=== PATIENT | female | born 2000 | race Caucasian/White ===

== ENCOUNTER → 2021-07-20 12:08 | Outpatient (CLI) | payer OTHER, MEDICAID, SELFPAY ==
--- NOTE | 2021-07-20 | DI.US.S_ITS ---
PROCEDURE: US OB >= 14 WEEKS FETUS INDICATIONS: 20 WEEK ANATOMY OUTSIDE/PRIOR DATING DATA: Last menstrual period (LMP): 02/28/2021. LMP-based estimated date of delivery (MESHA): 12/05/2021. First dating scan (date and location): 07/20/2021. Estimated date of delivery (MESHA) from first dating scan: 11/22/2021. TECHNIQUE: Real-time scanning was performed of the fetus, with image documentation and biometric measurements. COMPARISON: None. FINDINGS: General: A single living intrauterine gestation is present. Presentation: Vertex. Placenta: Placental position is anterior , without previa. Amniotic fluid index: 10.9 cm, normal range is 5-24 cm. heart rate: 136 beats per minute. Maternal cervical canal: 3.8 cm long. Normal lower limit is 2.5 cm. biometrics: Biparietal diameter: 5.5 cm 22 weeks 4 days Head circumference: 20.4 cm 20 weeks 3 days Abdominal circumference: 16.6 cm 21 weeks 4 days Femur length: 3.8 cm 22 weeks 1 day Composite gestational age from present scan: 22 weeks 1 day Estimated weight and percentile: 464 g, 69th percentile Anatomic survey: Neuro: Ventricles are non-dilated at less than 10 mm. Cisterna magna is normal at 3-11 mm. Cerebellum is normal in size and morphology. Nuchal skin fold: Normal at less than 6 mm between 14-21 weeks gestational age. Face: Nose and lips, facial profile are not well seen. Spine: No evidence for spina bifida. Heart: 4-chambered heart and ventricular outflow tracts are suboptimally evaluated. Echogenic focus is noted in the left atrium measuring approximately 3 mm. Diaphragm: Diaphragm is intact. Stomach: Left-sided stomach is present. Kidneys: No hydronephrosis. Normal is less than 5 mm in 2nd trimester, less than 7 mm in 3rd trimester. Cord: 3-vessel cord has orthotopic insertion. Bladder: Normal in size. Extremities: All 4 extremities identified. IMPRESSION: Single live intrauterine with ultrasound gestational age today of 22 weeks 1 day. Echogenic focus is noted within the left atrium. This is overall nonspecific. In addition, 4 chambered heart and outflow tracts are suboptimally visualized. Short interval imaging follow-up is recommended. profile and face are not well seen. Short interval follow-up is recommended. We strive to produce accurate, complete, and clear reports of imaging services. To assist us in improving patient care, this report was composed using standard report templates and voice recognition software. Therefore, it may contain abnormal punctuation, insertions and/or omissions. Occasional wrong-word or sound-alike substitutions may occur. Though we review the report and make efforts to correct it, we do recommend that the report be read carefully in proper context to recognize any text inaccuracies. Dictated by: Ila Jo M.D. on 07/21/2021 at 16:04 Approved by: Ila Jo M.D. on 07/21/2021 at 16:07
== END ==
PROVIDERS: Referring Provider Nurse Practitioner Obstetrics & Gynecology; Visit Provider Nurse Practitioner Obstetrics & Gynecology
DX: Z34.92 Encounter for supervision of normal pregnancy, unspecified, second trimester (principal); Z3A.22 22 weeks gestation of pregnancy
CPT/HCPCS: 76811

== ENCOUNTER → 2021-08-17 14:10 | Outpatient (CLI) | payer OTHER, MEDICAID, SELFPAY ==
--- NOTE | 2021-08-17 | DI.US.S_ITS ---
PROCEDURE: US OB FOLLOW UP INDICATIONS: FOLLOW UP FACE PREVIOUSLY UNSEEN TECHNIQUE: Real-time scanning was performed of the fetus, with image documentation. Endovaginal scanning: Not performed. COMPARISON: None. FINDINGS: A single living intrauterine gestation is present. Presentation: Vertex Placenta: Placental position is anterior, without previa. Amniotic fluid index: 15.8 cm, normal range is 5-24 cm. heart rate: 147 beats per minute. Cardiac views are all normal. Previously questioned echogenic ventricular focus is no longer identified. profile and facial structures appear normal. IMPRESSION: Single live intrauterine gestation. Completion cardiac and facial/profile views are normal. Dictated by: Jared Zamora M.D. on 08/17/2021 at 16:34 Approved by: Jared Zamora M.D. on 08/17/2021 at 16:36
== END ==
PROVIDERS: Referring Provider Nurse Practitioner Obstetrics & Gynecology; Visit Provider Nurse Practitioner Obstetrics & Gynecology
DX: Z34.00 Encounter for supervision of normal first pregnancy, unspecified trimester (principal)
CPT/HCPCS: 76816

== ENCOUNTER 2021-11-04 08:26 | Inpatient (IN) | payer OTHER, MEDICAID, SELFPAY ==
--- NOTE | 2021-11-04 08:39 | P.HPOB_ITS ---
OB HPI Date/Time Date of admission: 11/04/21 Date Patient Seen: 11/04/21 Time Patient Seen: 08:40 History of Present Condition Chief complaint: : 1 Para: 0 Estimated Date of Delivery: 11/28/21 Estimated Gestational Age (weeks): 36.4 Narrative: Sharmaine Peterson is a 21 year old female @ [id number] by 11wk US who presents for evaluation of PPROM. Awoke with a lot pf pelvic pressure this morning arou nd 0700. Cramping started and clear, leaking fluid was noted at 0800 getting out of the car. Now cramping every 3 minutes. Was know to be 3cm dilated at 36wk appt. Uncomplicated PN care w/ CNM. Desires low interbvention . and mother, present and supportive. History of Present care: good care, initiated at week # (11), number of visits (6) and pounds weight gain (22) Dating criteria: based on 1st trimester US only Ultrasounds: normal mid trimester US Obstetrical complications: none Medical complications: none Preadmission Labs Blood type: 0 (-) negative -: Antibody screen: negative, GBS status: positive, HBsAG: negative, HIV: negative and RPR/VDLR: negative -: Chlamydia screen: not detected and Gonorrhea screen: not detected -: Rubella: immune and Varicella: immune HCT: 34.7 HCAB: negative PAP: Normal Cell-free DNA: Negative, female Narrative: 2hr gtt: 84/159/120 Evaluation Evaluation Baseline heart rate: 130 Variability: Moderate (11-25) monitor accelerations: Present Monitor Decelerations: Variable Contraction Frequency (minutes): 2 Uterine Contraction Intensity: Moderate Status: Category ll Comments: CE deferred, previously 3cm in clinic on 10/31/2021 [facility] Social History (Updated 11/04/21 @ 10:50 by Klaudia Small CNM) marital status: household members: spouse lives independently: Yes Smoking Status: Never smoker Meds Home Medications and Allergies Home Medications Medication Instructions Recorded Confirmed Type No Known Home Medications 11/04/21 11/04/21 History Allergies Allergy/AdvReac Type Severity Reaction Status Date / Time No Known Drug Allergies Allergy Verified 11/04/21 09:06 Review of Systems Review of Systems ROS: Yes All systems reviewed with the patient and are negative except as otherwise documented OB Exam Presentation: vertex Estimated Weight (lbs): 5 Objective Labs Result Diagrams: 11/04/21 09:05 Labs: SARS-CoV-2: negative Assessment and Plan Assessment and Plan Assessment and Plan narrative: A: [place] PPROM x 2 hours without sx of infection GBS prophylaxis indicated RH negative Cat II FHR, overall reassuring P: Admit, routine orders, labor support, PRN. OB Back-up () consulted and okay with CNM management. Notified [facility] () of anticipated late today. PCN for GBS prophylaxis. Reassess in 4 hours or sooner, PRN. Time Spent with Patient Total time spent with greater than 50% in coordination of care (as documented) at patient's floor/unit and/or counseling patient:: 15-24 minutes
[2021-11-04 09:23] LABS: Add Manual Diff / Slide Review NO; Basophils Absolute Auto 100 /uL (0-100); Basophils Percent Auto 0.5 % (0-2); Eosinophils Absolute Auto 0 /uL (0-450); Eosinophils Percent Auto 0.3 % (2-4); Hematocrit 35.4 % (36-46); Hemoglobin 12.1 g/dL (12.0-16.0); Lymphocytes Absolute Auto 2200 /uL (1100-4500); Lymphocytes Percent Auto 15.9 % (25-40); Mean Corpuscular HGB Conc 34.1 % (30-36); Mean Corpuscular Hemoglobin 26.7 PG (26-34); Mean Corpuscular Volume 78.4 fL (80-100); Monocytes Absolute Auto 900 /uL (0-900); Monocytes Percent Auto 6.2 % (3-14); Neutrophils Absolute Auto 10800 /uL (1500-7000); Neutrophils Percent Auto 77.1 % (50-75); Platelet Count 303 X10^3/uL (150-400); Red Blood Cell Count 4.52 X10^6/uL (4.0-5.2); Red Cell Distribution Width 14.2 % (11.6-14.8)
[2021-11-04 09:35] LABS: COVID19 -Nasal RAPID Negative (Negative)
[2021-11-04] MEDS: PENICILLIN G POTASSIUM 5,000,000 UNIT in DEXTROSE 5% IN WATER 250 ML 250 UNIT IV (10:06)
[2021-11-04] MEDS: LACTATED RINGERS 1,000 ML 100 ML IV ×2 (10:07→14:03)
[2021-11-04] MEDS: fentaNYL 100 MCG/2 ML INJ (10:45)
[2021-11-04] MEDS: FENT 2MCG/ML BUPIV 0.125% EPI 200 MCG/100 ML PLAST..BAG 12 MCG EPIDURAL (10:50)
[2021-11-04 12:22] LABS: Aspartate Aminotransferase 20 IU/L (14-36); BUN Creatinine Ratio 8.2 (6-22); Blood Urea Nitrogen 4 mg/dL (7-17); Estimated Glomerular Filt Rate > 60 mL/min (>60); Uric Acid 3.4 mg/dL (2.5-6.2)
[2021-11-04 12:23] LABS: Creatinine Urine Random 83.9 mg/dL; Protein (Total) Urine Random 29 mg/dL (0-12); Protein Creatinine Ratio Urine 0.34 GRAM/24H
[2021-11-04] MEDS: PENICILLIN G POTASSIUM 3,000,000 UNIT/50 ML FROZ.PIGGY 100 UNIT IV (14:49)
[2021-11-04 15:21] VITALS: BP 135/92
--- NOTE | 2021-11-04 16:09 | PM.OBPRVD ---
Events: Labor < 37 wks and Premature Rupture Membrane Labor & Delivery Delivery date: 11/04/21 Intrapartal Events: Mild Preeclampsia Cervical ripening method: none Induction method: none Delivery monitor: external FHT and external uterine Route of delivery: Episiotomy description: None L&D Laceration Description: None Quantitative Blood Loss: 60 Anesthesia Type: Epidural Narrative: Patient achieved adequate pain relief with epidural anesthesia. Labor progressed well without augmentation. GBS was adequately treated at 2pm (penicillin x 2 doses). Preeclampsia was diagnosed in labor based on BP and elevated protein creatinine ratio. Patient began to feel constant rectal pressure, was examined and found to be C/C/+1. Patient pushed well with coaching and encouragement. RT was called to standby for the . NSVB of a viable baby girl in ESTHER position with a single tight nuchal cord, body cord x1 and compound left hand. was placed on maternal abdomen for drying and skin to skin with Apgars of 9/9. RT was called off as they entered the room within 30 seconds of the . 30 units of pitocin in 500mL LR was started at 250mL/hr for AMTSL. After cessation of pulsation, the cord was double clamped by CNM and cut by FOB. Hospital cord blood sample was collected. Gentle cord traction led to spontaneous, Schultze delivery of an apparently intact placenta, membranes and 3VC. Fundus immediately firm and bleeding minimal. Vagina and perineum inspected and intact. QBL 60mL. Both mother and baby stable and skin to skin as I left the room. Baby 1: Infant gender: Female Presentation: vertex Position: Left Occiput Anterior Placenta delivery description: Spontaneous Cord Vessel Description: 3 Vessels, Nuchal Cord and Around Body x1 score (1 min): 9 score (5 min): 9 weight: 2.764 kg Plan for aftercare: Routine care
[2021-11-04] MEDS: KETOROLAC 30 MG/ML VIAL IV (18:41)
[2021-11-05] MEDS: ACETAMINOPHEN 325 MG TABLET 650 MG PO ×2 (02:41→11:37)
[2021-11-05 07:20] LABS: Add Manual Diff / Slide Review NO; Basophils Absolute Auto 100 /uL (0-100); Basophils Percent Auto 0.4 % (0-2); Eosinophils Absolute Auto 100 /uL (0-450); Eosinophils Percent Auto 0.4 % (2-4); Hematocrit 32.1 % (36-46); Hemoglobin 10.8 g/dL (12.0-16.0); Lymphocytes Absolute Auto 2700 /uL (1100-4500); Lymphocytes Percent Auto 17.9 % (25-40); Mean Corpuscular HGB Conc 33.7 % (30-36); Mean Corpuscular Hemoglobin 26.6 PG (26-34); Mean Corpuscular Volume 79.1 fL (80-100); Monocytes Absolute Auto 1200 /uL (0-900); Monocytes Percent Auto 7.6 % (3-14); Neutrophils Absolute Auto 11300 /uL (1500-7000); Neutrophils Percent Auto 73.7 % (50-75); Platelet Count 257 X10^3/uL (150-400); Red Blood Cell Count 4.06 X10^6/uL (4.0-5.2); Red Cell Distribution Width 14.5 % (11.6-14.8); White Blood Cell Count 15.3 X10^3/uL (4.5-11.0)
--- NOTE | 2021-11-05 09:06 | PM.OBDS.1 ---
Discharge Providers Provider Date of admission: 11/04/21 08:26 Discharge Date: 11/05/21 Primary care physician: MARIA EUGENIA Adair Consults: 11/05/21 16:07 Consult to Construction Rigger Routine Comment: Discharge provider: Klaudia Small CNM Summary Hospital Course Date Patient Seen: 11/05/21 Time Patient Seen: 09:07 Diagnoses: O80 Hospital Course: PPD1 s/p NSVB. Voiding, ambulating and independently. Tolerating a general diet. Vaginal bleeding it light, without clots. Partner remains present and supportive. Peripartum Data Infant Delivery Method: Natural Vaginal Laceration Description: None Episiotomy description: None Procedures: NSVB (O80) complications: none 1: Gender: Female Disposition of : home Discharge Diagnosis (1) Encounter for full-term uncomplicated delivery: Status: Acute (2) Pre-eclampsia affecting childbirth: Start Date: 11/04/21 Start Time: 15:00 Status: Acute Problem Details: stable PP BPs Status at Discharge Cognitive/behavioral status at discharge: oriented and calm Functional status at discharge: independent ambulation Time Spent with Patient Time attestation: Total time spent providing and/or coordinating discharge services: Time spent: Less than 30 minutes Specific discharge activities: PP discharge teaching Objective Labs Result Diagrams: 11/05/21 07:06 11/04/21 11:15 Labs: Laboratory Results - last 24 hr 11/04/21 11/04/21 11/04/21 09:05 09:05 09:05 WBC 14.0 H RBC 4.52 Hgb 12.1 Hct 35.4 L MCV 78.4 L MCH 26.7 MCHC 34.1 RDW 14.2 Plt Count 303 Neut % (Auto) 77.1 H Lymph % (Auto) 15.9 L [place] % (Auto) 6.2 Eos % (Auto) 0.3 L Baso % (Auto) 0.5 Neut # (Auto) 04742 H Lymph # (Auto) 2200 [place] # (Auto) 900 Eos # (Auto) 0 Baso # (Auto) 100 BUN Creatinine Estimated GFR BUN/Creatinine Ratio Uric Acid AST U Random Total Protein Urine Creatinine Protein/Creatinin Ratio SARS-CoV-2 (PCR) Negative Blood Type O Negative Antibody Screen Positive Antibody Identification Anti-D Maternal Bleed 11/04/21 11/04/2122 11:15 12:06 07:06 WBC 15.3 H RBC 4.06 Hgb 10.8 L Hct 32.1 L MCV 79.1 L MCH 26.6 MCHC 33.7 RDW 14.5 Plt Count 257 Neut % (Auto) 73.7 Lymph % (Auto) 17.9 L [place] % (Auto) 7.6 Eos % (Auto) 0.4 L Baso % (Auto) 0.4 Neut # (Auto) 86097 H Lymph # (Auto) 2700 [place] # (Auto) 1200 H Eos # (Auto) 100 Baso # (Auto) 100 BUN 4 L Creatinine 0.49 L Estimated GFR > 60 BUN/Creatinine Ratio 8.2 Uric Acid 3.4 AST 20 U Random Total Protein 29 H Urine Creatinine 83.9 Protein/Creatinin Ratio 0.34 SARS-CoV-2 (PCR) Blood Type Antibody Screen Antibody Identification Maternal Bleed 11/05/21 07:06 WBC RBC Hgb Hct MCV MCH MCHC RDW Plt Count Neut % (Auto) Lymph % (Auto) [place] % (Auto) Eos % (Auto) Baso % (Auto) Neut # (Auto) Lymph # (Auto) [place] # (Auto) Eos # (Auto) Baso # (Auto) BUN Creatinine Estimated GFR BUN/Creatinine Ratio Uric Acid AST U Random Total Protein Urine Creatinine Protein/Creatinin Ratio SARS-CoV-2 (PCR) Blood Type Antibody Screen Antibody Identification Maternal Bleed Negative Exam Vital Signs (past 8 hours): BP 136/80, HR 84bpm,HR 98.3F Temporal Other: Fundus firm @ U. Lochia light, no clots. Perineum intact. Discharge Plan Discharge Plan Patient Disposition: Home Discharge orders & Medications Prescriptions: New ibuprofen 600 mg Tablet 600 mg PO Q6HR PRN (Reason: Pain, Mild (1-3)) 14 Days Qty: 60 0RF Follow up/Referrals: Klaudia Small CNM [[employer]st] - (Follow-up Sunday11/08/21 @ 3pm for BP check Follow-up 11/17/21 @ 0945 by Telehealth Follow-up 12/17/21 @ 1000 in office) Diet/Activity/Treatments Diet: Diet as Tolerated and Regular Activity: pelvic rest x 6 weeks Skin/Wound/Dressing Care Report to your healthcare provider any signs of infection, such as:: chills, fever, increased pain, unusual drainage and unusual redness Visit Report/Discharge Packet Instructions: DI for Depression
[2021-11-05] MEDS: IBUPROFEN 600 MG TABLET PO (11:37)
[2021-11-05] MEDS: DERMOPLAST SPRAY 20% 60 ML 1 SPRAY TOP (11:38)
[2021-11-05] MEDS: LANOLIN OINT 7 GM 1 APPLIC TOP (11:39)
== END 2021-11-05 15:50 | disposition home or self-care (01) | DRG 560 ==
PROVIDERS: Admitting Provider Nurse Practitioner Obstetrics & Gynecology; Referring Provider Nurse Practitioner Obstetrics & Gynecology; Visit Provider Nurse Practitioner Obstetrics & Gynecology
DX: O42.013 Preterm premature rupture of membranes, onset of labor within 24 hours of rupture, third trimester (principal); O60.14X0 Preterm labor third trimester with preterm delivery third trimester, not applicable or unspecified; Z3A.36 36 weeks gestation of pregnancy; Z37.0 Single live birth; O99.824 Streptococcus B carrier state complicating childbirth; O14.04 Mild to moderate pre-eclampsia, complicating childbirth; O69.81X0 Labor and delivery complicated by cord around neck, without compression, not applicable or unspecified; Z20.822 Contact with and (suspected) exposure to COVID-19
CPT/HCPCS: 01967; 36415; 59050; 82570; 84112; 84156; 84450; 84550; 85025; 85461; 86850; 86870; 86900; 86901; 87635; C9803; G0379; J1885; J2540; J3010